=== PATIENT | male | born 1995 | race American Indian/Alaskan Native ===

== ENCOUNTER 2019-12-23 21:03 | Emergency (ER) | payer SELFPAY ==
[~2019-12-23 21:03] MED LIST: EPINEPHrine 1 MG/10 ML SYRINGE ONE; SODIUM BICARB 8.4% 50 MEQ/50 ML SYRINGE IV ONE
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
== END 2019-12-23 23:04 ==
LOC: ED 21:03
DX: S11.90XA Unspecified open wound of unspecified part of neck, initial encounter (principal); S21.209A Unspecified open wound of unspecified back wall of thorax without penetration into thoracic cavity, initial encounter; I46.9 Cardiac arrest, cause unspecified; W34.00XA Accidental discharge from unspecified firearms or gun, initial encounter; Y93.89 Activity, other specified; Y92.89 Other specified places as the place of occurrence of the external cause; Y99.8 Other external cause status
CPT/HCPCS: 31500; 99291; J0171